=== PATIENT | female | born 1960 | race Caucasian/White ===

== ENCOUNTER → 2021-11-28 | Outpatient (CLI) | payer OTHER ==
--- NOTE | 2021-11-28 10:12 | MM ---
Reason for Exam: Screening (asymptomatic). Last mammogram was performed 13 year(s) and 4 month(s) ago. Patient History: Menarche at age 14. First Full-Term at age 24. Postmenopausal. Risk Values: Angy 5 year model risk: 1.2%. NCI Lifetime model risk: 5.8%. Prior Study Comparison: 05/07/2007 Bilateral Screening Mammogram, [facility]. 08/16/2008 Bilateral Screening Mammogram, [facility]. Tissue Density: There are scattered fibroglandular densities. Findings: Analyzed By CAD. Benign-appearing bilateral axillary lymph nodes on current study. There is no suspicious group of microcalcifications or new suspicious mass in either breast. Overall Assessment: Negative, BI-RAD 1 Management: Screening Mammogram of both breasts in 1 year. A clinical breast exam by your physician is recommended on an annual basis and results should be correlated with mammographic findings. Electronically signed and approved by: Tee Meek M.D.
== END | disposition home or self-care (01) ==
LOC: RADMAMWWP 07:16 → MERGE 07:20
PROVIDERS: ATTEND Family Medicine
DX: Z12.31 Encounter for screening mammogram for malignant neoplasm of breast (principal); Z78.0 Asymptomatic menopausal state
CPT/HCPCS: 77063; 77067

== ENCOUNTER → 2023-02-16 | Outpatient (CLI) | payer MEDICARE, OTHER ==
--- NOTE | 2023-02-16 09:44 | MM ---
Reason for Exam: Screening (asymptomatic). Last mammogram was performed 1 year(s) and 2 month(s) ago. Patient History: Menarche at age 14. First Full-Term at age 24. Postmenopausal. Risk Values: Angy 5 year model risk: 1.2%. NCI Lifetime model risk: 5.7%. Prior Study Comparison: 05/07/2007 Bilateral Screening Mammogram, [facility]. 08/16/2008 Bilateral Screening Mammogram, [facility]. 11/28/2021 Bilateral MG 3D screening mammo w/cad, [facility]. Tissue Density: The breast tissue is almost entirely fat. Findings: Analyzed By CAD. There is no suspicious group of microcalcifications or new suspicious mass. Overall Assessment: Negative, BI-RAD 1 Management: Screening Mammogram of both breasts in [address] [facility] will attempt to contact patient to return for supplemental views and ultrasound if indicated. Patient should continue monthly self-breast exams. A clinical breast exam by your physician is recommended on an annual basis. This exam should not preclude additional follow-up of suspicious palpable abnormalities. Note on Angy scores and lifetime risk: 1. A Angy score greater than 3% is considered moderate risk. If this is the case, consider specialist referral to assess eligibility for a risk reducing agent. 2. If overall lifetime risk for the development of breast cancer is 20% or higher, the patient may qualify for future screening with alternating mammogram and breast MRI. Electronically signed and approved by: Zeeshan Vega DO
== END | disposition home or self-care (01) ==
LOC: RADMAMWWP 08:30
PROVIDERS: ATTEND Family Medicine
DX: Z12.31 Encounter for screening mammogram for malignant neoplasm of breast (principal); Z78.0 Asymptomatic menopausal state
CPT/HCPCS: 77063; 77067